=== PATIENT | male | born 1985 | race Hispanic/Latino ===

== ENCOUNTER 2019-01-17 23:04 | Emergency (ER) | payer OTHER ==
--- OUTSIDE RECORDS SUMMARY | 2019-01-17 23:06 | XMS REPORT ---
:1985 Author Organization eClinicalWorks Care Team Providers Name Role Phone Jens Medina Provider Role Unavailable Allergies No Known Allergies Problems Problem Type Condition Code Onset Dates Condition Status Assessment Screening for venereal disease Z11.3 Active Problem Former smoker Z87.891 Active Problem Bakers cyst M71.20 Active Problem Diabetes type 2, uncontrolled E11.65 Active Assessment Penile rash R21 Active Problem Hyperlipidemia, mixed E78.2 Active Problem Edema of foot R60.0 Active Medications Medication Code Code Instructions Start End Date Status Dosage System Date Metformin HCl [facility] 36253984473 1000 MG Orally Active 1 tablet Once a day with a meal Lipitor [facility] 36956951820 40 MG Orally Active 1 tablet Once a day Results No Known Results Summary Purpose eClinicalWorks Submission
--- OUTSIDE RECORDS SUMMARY | 2019-01-17 23:06 | XMS REPORT ---
:1985 Author Organization eClinicalWorks Care Team Providers Name Role Phone Jens Medina Provider Role Unavailable Allergies, Adverse Reactions, Alerts Substance Reaction Event Type Aspir-81 Info Not Available Drug Allergy Aleve Info Not Available Drug Allergy Problems Problem Type Condition Code Onset Dates Condition Status Assessment Elevated BP without diagnosis of R03.0 Active hypertension Assessment Diabetes type 2, uncontrolled E11.65 Active Assessment Hyperlipidemia, mixed E78.2 Active Assessment Need for Tdap vaccination Z23 Active Assessment Left foot pain M79.672 Active Assessment Former smoker Z87.891 Active Problem Former smoker Z87.891 Active Problem Bakers cyst M71.20 Active Problem Diabetes type 2, uncontrolled E11.65 Active Assessment Encounter for preventative adult Z00.01 Active health care exam with abnormal findings Problem Hyperlipidemia, mixed E78.2 Active Problem Edema of foot R60.0 Active Medications Medication Code Code Instructions Start End Date Status Dosage System Date Lipitor [facility] 25863072475 40 MG Orally Active 1 tablet Once a day Metformin HCl [facility] 26366510160 1000 MG Orally Active 1 tablet Once a day with a meal Results No Known Results Immunizations Vaccine Administration Date TDAP > 7 Years-Adacel May 26, 2018 Summary Purpose eClinicalWorks Submission
--- OUTSIDE RECORDS SUMMARY | 2019-01-17 23:07 | XMS REPORT ---
:1985 Author Organization eClinicalWorks Care Team Providers Name Role Phone Jens Medina Provider Role Unavailable Allergies No Known Allergies Problems Problem Type Condition Code Onset Dates Condition Status Assessment HTN, goal below 130/80 I10 Active Problem HTN, goal below 130/80 I10 Active Problem Diabetes type 2, uncontrolled E11.65 Active Problem Microalbuminuria R80.9 Active Problem Hyperlipidemia, mixed E78.2 Active Problem Edema of foot R60.0 Active Problem Former smoker Z87.891 Active Problem Bakers cyst M71.20 Active Medications Medication Code Code Instructions Start End Status Dosage System Date Date Lisinopril [facility] 04212316851 10 MG Orally Jun 24, Inactive 1 tablet Once a day 2017 Vascepa [facility] 52478929703 1 GM Orally Jun 24Aug 23, Active 2 capsules Twice a day 2017 2017 with meals Lipitor ND 49285773252 40 MG Orally Active 1 tablet Once a day Losartan ND 69792330158 25 MG Orally Jun 25, Active 1 tablet Potassium Once a day 2017 Glyxambi [facility] 81834592407 25mg/5mg By Jun 24, Active 1 tab Mouth Once in 2018 AM Metformin HCl [facility] 86257021517 1000 MG Orally Active 1 tablet Once a day with a meal Results No Known Results Summary Purpose eClinicalWorks Submission
--- OUTSIDE RECORDS SUMMARY | 2019-01-17 23:07 | XMS REPORT ---
:1985 Author Organization eClinicalWorks Care Team Providers Name Role Phone Yohan Medinah Provider Role Unavailable Allergies, Adverse Reactions, Alerts Substance Reaction Event Type Aspir-81 Info Not Available Drug Allergy Aleve Info Not Available Drug Allergy Problems Problem Type Condition Code Onset Dates Condition Status Assessment Hyperlipidemia, mixed E78.2 Active Assessment Diabetes type 2, uncontrolled E11.65 Active Assessment Former smoker Z87.891 Active Assessment Microalbuminuria R80.9 Active Assessment HTN, goal below 130/80 I10 Active Problem HTN, goal below 130/80 I10 Active Problem Diabetes type 2, uncontrolled E11.65 Active Problem Microalbuminuria R80.9 Active Problem Hyperlipidemia, mixed E78.2 Active Problem Edema of foot R60.0 Active Problem Former smoker Z87.891 Active Problem Bakers cyst M71.20 Active Medications Medication Code Code Instructions Start End Date Status Dosage System Date Lipitor [facility] 47982560430 40 MG Orally Active 1 tablet Once a day Losartan ND 47660780122 50 MG Orally Jun 25, Active 1 tablet Potassium Once a day 2017 Metformin HCl ND 94434873842 1000 MG Orally Active 1 tablet Once a day with a meal Glyxambi ND 96848668053 25mg/5mg By Active 1 tab Mouth Once in AM Results No Known Results Summary Purpose eClinicalWorks Submission
--- OUTSIDE RECORDS SUMMARY | 2019-01-17 23:07 | XMS REPORT ---
:1985 Author Organization eClinicalWorks Care Team Providers Name Role Phone Jens Medina Provider Role Unavailable Allergies No Known Allergies Problems Problem Type Condition Code Onset Dates Condition Status Assessment Hyperlipidemia, mixed E78.2 Active Assessment Diabetes type 2, uncontrolled E11.65 Active Problem HTN, goal below 130/80 I10 Active Problem Diabetes type 2, uncontrolled E11.65 Active Problem Microalbuminuria R80.9 Active Problem Hyperlipidemia, mixed E78.2 Active Problem Edema of foot R60.0 Active Problem Former smoker Z87.891 Active Problem Bakers cyst M71.20 Active Assessment Left foot pain M79.672 Active Assessment Former smoker Z87.891 Active Assessment Microalbuminuria R80.9 Active Assessment HTN, goal below 130/80 I10 Active Medications Medication Code Code Instructions Start End Status Dosage System Date Date Lisinopril [facility] 41699011852 10 MG Orally Jun 24, Active 1 tablet Once a day 2017 Lipitor [place] 95532369951 40 MG Orally Active 1 tablet Once a day Metformin HCl ND 57585865608 1000 MG Orally Active 1 tablet Once a day with a meal Glyxambi [facility] 09998968247 25mg/5mg By Jun 24, Active 1 tab Mouth Once in AM 2017 Vascepa [facility] 05296846630 1 GM Orally Jun 24Aug 23, Active 2 capsules Twice a day 2017 2017 with meals Results No Known Results Summary Purpose eClinicalWorks Submission
[2019-01-17] MEDS ORDERED: IBUPROFEN 200 MG TAB PO ONE (23:40)
[2019-01-18] MEDS ORDERED: IBUPROFEN 200 MG TAB PO ONE (00:37)
[2019-01-18] MEDS ORDERED: IBUPROFEN 400 MG TAB ONE (00:37)
--- NOTE | 2019-01-18 01:51 | ER ---
Nurse's Notes [facility] Name: Lai Cardenas Age: 33 yrs Sex: Male : 1985 Arrival Date: 01/17/2019 Time: 23:09 Bed 23 Private MD: Chelo Sauer Diagnosis: Contusion of right front wall of thorax Presentation: 01/17 23:21 Presenting complaint: Patient states: pt [place] 4 hours [place] and he was running fell on his right elbow, heard a cracking noise and now he is having pain to right rib area with deep breathing or sudden movements. Transition of care: patient was not received from another setting of care. Onset of symptoms was January 17, 2019. Risk Assessment: Do you want to hurt yourself or someone else? Patient reports no desire to harm self or others. Initial Sepsis Screen: Does the patient meet any 2 criteria? No. Patient's initial sepsis screen is negative. Does the patient have a suspected source of infection? No. Patient's initial sepsis screen is negative. Care prior to arrival: None. 23:21 Method Of Arrival: Ambulatory 23:21 Acuity: PERNELL 3 bb Historical: - Allergies: 23:24 No Known Allergies; bb - Home Meds: 23:24 metformin 750 mg Oral Tb24 2 tabs once daily [Active]; losartan oral oral [Active]; bb Glyxambi oral oral [Active]; - PMHx: 23:24 Diabetes - NIDDM; Hypertension; bb - PSHx: 23:24 None; bb - Immunization history:: Adult Immunizations up to date. - Social history:: Smoking status: Patient/guardian denies using tobacco, Patient/guardian denies using alcohol, street drugs. - Ebola Screening: : No symptoms or risks identified at this time. Screenin/25 00:12 Abuse screen: Denies threats or abuse. Denies injuries from another. Nutritional ca1 screening: No deficits noted. Tuberculosis screening: No symptoms or risk factors identified. Fall Risk None identified. Assessment: 00:11 General: Appears in no apparent distress. comfortable, Behavior is calm, cooperative, ca1 appropriate for age. Pain: Complains of pain in right elbow Pain does not radiate. Pain currently is 9 out of 10 on a pain scale. Pain began 4 hours ago. Neuro: Level of Consciousness is awake, alert, obeys commands, Oriented to person, place, time, situation. Cardiovascular: Heart tones S1 S2 present Capillary refill < 3 seconds Patient's skin is warm and dry. Respiratory: Airway is patent Respiratory effort is even, unlabored, Respiratory pattern is regular, symmetrical, Breath sounds are clear bilaterally. GI: No deficits noted. No signs and/or symptoms were reported involving the gastrointestinal system. : No deficits noted. No signs and/or symptoms were reported regarding the genitourinary system. EENT: No deficits noted. No signs and/or symptoms were reported regarding the EENT system. Derm: Skin is intact, is healthy with good turgor, Skin is pink, warm \T\ dry. Musculoskeletal: Circulation, motion, and sensation intact. Capillary refill < 3 seconds, Range of motion: limited in right elbow. 01:48 Reassessment: Patient appears in no apparent distress at this time. No changes from la1 previously documented assessment. Patient and/or family updated on plan of care and expected duration. Pain level reassessed. Patient is alert, oriented x 3, equal unlabored respirations, skin warm/dry/pink. Vital Signs: 01/17 23:24 BP 146 / 91; Pulse 84; Resp 16 S; Temp 98.7; Pulse Ox 98% on R/A; Weight 99.79 kg (R); bb Height 6 ft. 0 in. (182.88 cm) (R); Pain 9/10; 01/18 01:07 BP 132 / 77; Pulse 75; Resp 19; Pulse Ox 99% on R/A; ca1 01:47 BP 128 / 80; Pulse 80; Resp 18; Pulse Ox 98% on R/A; la1 01/17 23:24 Body Mass Index 29.84 (99.79 kg, 182.88 cm) bb ED Course: 01/17 23:09 Patient arrived in ED. es 23:10 Chelo Sauer MD is Private Physician. es 23:23 Triage completed. bb 23:24 Arm band placed on Patient placed in waiting room, Patient notified of wait time. X-ray bb ordered. Family accompanied patient. 01/18 00:00 X-ray completed. Portable x-ray completed in exam room. Patient tolerated procedure kw well. 00:01 XRAY Chest (1 view) In Process Unspecified. EDMS 00:12 Laura Dhillon, RN is Primary Nurse. ca1 00:12 Patient has correct armband on for positive identification. Bed in low position. Call ca1 light in reach. Side rails up X 1. Pulse ox on. NIBP on. Warm blanket given. 00:12 No provider procedures requiring assistance completed. Patient did not have IV access ca1 during this emergency room visit. 00:18 Erik Carlos MD is Attending Physician. tw4 01:50 Chelo Sauer MD is Referral Physician. tw4 Administered Medications: 00:44 Drug: Motrin 600 mg Route: PO; la1 01:41 Drug: [place] 5 mg-325 mg 1 tabs Route: PO; la1 Outcome: 01:51 Discharge ordered by . tw4 01:55 Discharged to home ambulatory. la1 01:55 Condition: stable 01:55 Discharge instructions given to patient, Instructed on discharge instructions, follow up and referral plans. medication usage, Demonstrated understanding of instructions, follow-up care, medications, Prescriptions given X 2. 01:55 Patient left the ED. la1 Signatures: Dispatcher [employer] EDAR Lisa Calvert Brenda, RN RN Irma Mancilla Lee RN RN la1 Erik Carlos MD MD tw4 Laura Dhillon, SHARRON RN ca1 Corrections: (The following items were deleted from the chart) 01:07 00:11 BP 132 / 77; Pulse 75bpm; Resp 19bpm; Pulse Ox 99% RA; ca1 ca1
--- NOTE | 2019-01-18 01:51 | EDPHYS ---
Physician Documentation [facility] Name: Lai Cardenas Age: 33 yrs Sex: Male : 1985 Arrival Date: 01/17/2019 Time: 23:09 Bed 23 Private MD: Chelo Sauer ED Physician Erik Carlos HPI: 01/18 06:17 This 33 yrs old Male presents to ER via Ambulatory with complaints of Fall tw4 Injury, Pain in chest area on deep breath. 06:17 Details of fall: The patient fell from an upright position, while standing. Onset: The tw4 symptoms/episode began/occurred today. Associated injuries: The patient sustained injury to the chest, specifically the anterior aspect of right upper chest. Severity of symptoms: At their worst the symptoms were moderate, in the emergency department the symptoms are unchanged. The patient has not experienced similar symptoms in the past. Historical: - Allergies: 01/17 23:24 No Known Allergies; bb - Home Meds: 23:24 metformin 750 mg Oral Tb24 2 tabs once daily [Active]; losartan oral oral [Active]; bb Glyxambi oral oral [Active]; - PMHx: 23:24 Diabetes - NIDDM; Hypertension; bb - PSHx: 23:24 None; bb - Immunization history:: Adult Immunizations up to date. - Social history:: Smoking status: Patient/guardian denies using tobacco, Patient/guardian denies using alcohol, street drugs. - Ebola Screening: : No symptoms or risks identified at this time. ROS: 01/18 06:17 Constitutional: Negative for fever, chills, and weight loss, Eyes: Negative for injury, tw4 pain, redness, and discharge, Respiratory: Negative for shortness of breath, cough, wheezing, and pleuritic chest pain, Abdomen/GI: Negative for abdominal pain, nausea, vomiting, diarrhea, and constipation. MS/Extremity: Negative for injury and deformity, Skin: Negative for injury, rash, and discoloration. Cardiovascular: Positive for chest pain, Negative for edema, orthopnea, palpitations. Exam: 06:17 Constitutional: This is a well developed, well nourished patient who is awake, alert, tw4 and in no acute distress. Head/Face: Normocephalic, atraumatic. Cardiovascular: Regular rate and rhythm with a normal S1 and S2. No gallops, murmurs, or rubs. Normal PMI, no JVD. No pulse deficits. Respiratory: Lungs have equal breath sounds bilaterally, clear to auscultation and percussion. No rales, rhonchi or wheezes noted. No increased work of breathing, no retractions or nasal flaring. Abdomen/GI: Soft, non-tender, with normal bowel sounds. No distension or tympany. No guarding or rebound. No evidence of tenderness throughout. 06:17 Chest/axilla: Inspection: normal, Palpation: tenderness, of the anterior aspect of right upper chest, that totally reproduces the patient's complaints. Vital Signs: 01/17 23:24 BP 146 / 91; Pulse 84; Resp 16 S; Temp 98.7; Pulse Ox 98% on R/A; Weight 99.79 kg (R); bb Height 6 ft. 0 in. (182.88 cm) (R); Pain 9/10; 01/18 01:07 BP 132 / 77; Pulse 75; Resp 19; Pulse Ox 99% on R/A; ca1 01:47 BP 128 / 80; Pulse 80; Resp 18; Pulse Ox 98% on R/A; la1 01/17 23:24 Body Mass Index 29.84 (99.79 kg, 182.88 cm) bb MDM: 00:19 Patient medically screened. tw4 06:18 Differential diagnosis: abrasion, closed head injury, contusion, fracture. Data tw4 reviewed: vital signs, nurses notes. Data interpreted: monitoring specialist: rhythm is normal sinus rhythm, Pulse oximetry: Interpretation: normal. Test interpretation: by ED physician or midlevel provider: plain radiologic studies. Counseling: I had a detailed discussion with the patient and/or guardian regarding: the historical points, exam findings, and any diagnostic results supporting the discharge/admit diagnosis, radiology results. Medication response: Response to treatment: and as a result, I will discharge patient. Special discussion: Based on the patient's history, exam, and Dx evaluation, there is no indication for emergent intervention or inpatient Tx. It is understood by the patient/guardian that if the Sx's persist or worsen they need to return immediately for re-evaluation. I discussed with the patient/guardian in detail that at this point there is no indication for admission to the hospital. It is understood, however, that if the symptoms persist or worsen the patient needs to return immediately for re-evaluation. 01/17 23:27 Order name: XRAY Chest (1 view) bb Administered Medications: 00:44 Drug: Motrin 600 mg Route: PO; la1 01:41 Drug: [place] 5 mg-325 mg 1 tabs Route: PO; la1 Disposition: 01/18/19 01:51 Discharged to Home. Impression: Contusion of right front wall of thorax. - Condition is Stable. - Discharge Instructions: Chest Wall Pain, Chest Contusion, Adult. - Prescriptions for Ibuprofen 800 mg Oral Tablet - take 1 tablet by ORAL route every 8 hours As needed take with food; 30 tablet. Tylenol- Codeine #3 300-30 mg Oral Tablet - take 2 tablet by ORAL route every 6 hours As needed; 6 tablet. - Medication Reconciliation Form, Thank You Letter, Antibiotic Education, Prescription Opioid Use form. - Follow up: Chelo Sauer MD; When: Upon discharge from the Emergency Department; Reason: If symptoms return, Recheck today's complaints, Continuance of care. - Problem is new. - Symptoms have improved. Signatures: Dispatcher [employer] EDMS Ynes Rosas RN RN bb Reuben Farah RN RN la1 Erik Carlos MD MD tw4 Corrections: (The following items were deleted from the chart) 01:55 01:51 01/18/2019 01:51 Discharged to Home. Impression: Contusion of right front wall of la1 thorax. Condition is Stable. Forms are Medication Reconciliation Form, Thank You Letter, Antibiotic Education, Prescription Opioid Use. Follow up: Chelo Sauer; When: Upon discharge from the Emergency Department; Reason: If symptoms return, Recheck today's complaints, Continuance of care. Problem is new. Symptoms have improved. tw4
[2019-01-18] MEDS ORDERED: HYDROCODONE/APAP 5/325 MG TAB ONE (01:52)
--- NOTE | 2019-01-18 08:32 | RAD REPORT ---
EXAM DESCRIPTION: RAD - Chest Single View - 01/18/2019 12:00 am CLINICAL HISTORY: Fall, chest pain COMPARISON: None. TECHNIQUE: AP portable chest image was obtained 2357 hours . FINDINGS: Lungs are clear. Heart and vasculature are normal. No measurable pleural effusion and no p neumothorax. No acute aortic findings suspected. No gross evidence for an acute bone process. Concerns for rib fracture can be addressed with dedicate d imaging. IMPRESSION: No acute cardiopulmonary process.
== END 2019-01-18 01:55 | disposition home or self-care (01) ==
LOC: ER 23:04
DX: S20.211A Contusion of right front wall of thorax, initial encounter (principal); W18.30XA Fall on same level, unspecified, initial encounter; Y93.89 Activity, other specified; Y92.830 Public park as the place of occurrence of the external cause; E11.9 Type 2 diabetes mellitus without complications; I10 Essential (primary) hypertension
CPT/HCPCS: 71045; 99284